=== PATIENT | female | born 1995 | race American Indian/Alaskan Native ===

== ENCOUNTER 2020-04-08 23:47 | Emergency (ER) | payer MEDICAID ==
[2020-04-09] MEDS ORDERED: ALUM-MAG HYDROXIDE-SIMETHICONE 200-200-20MG/5ML ORAL LIQD 30 ML PO ONE (00:11)
[2020-04-09] MEDS ORDERED: LIDOCAINE VISCOUS 2% 15 ML ORAL LIQD PO ONE (00:11)
[2020-04-09] MEDS ORDERED: ALPRAZolam 0.25 MG TAB PO ONE (00:11)
[2020-04-09 00:14] VITALS: BP 113/51
--- NOTE | 2020-04-09 00:28 | Emergency Department Report ---
ED General Adult HPI - General Chief complaint: Chest Pain Stated complaint: CHEST PAIN Source: patient Mode of arrival: Ambulatory Limitations: No Limitations - History of Present Illness Initial comments: Patient is a nulliparous 25-year-old -Algerian female with no past medical history except anxiety and who presents to the ED with complaint of acute onset persistent intermittent mild chest discomfort after smoking marijuana for the last 2 weeks. Patient states that each time she smokes marijuana she experiences similar symptoms with a burning sensation. Patient denies nausea, vomiting, shortness of breath, chest pain, abdominal pain, dizziness, syncope, change in vision, lightheadedness, back pain, traumatic injury or hemoptysis, sore throat, nasal and sinus congestion or fever and chills. MD Complaint: diffuse chest wall discomfort -: week(s) (2) Location: chest Radiation: non-radiation Severity scale (0 -10): 2 Quality: dull, constant Improves with: none Associated Symptoms: chest pain. denies: denies other symptoms, cough, diaphoresis, fever/chills, headaches, malaise, nausea/vomiting, rash, seizure, shortness of breath, syncope, weakness Treatments Prior to Arrival: none - Related Data Previous Rx's Medication Instructions Recorded Last Taken Type Famotidine [Pepcid] 20 mg PO Q12H #60 tablet 04/09/20 Unknown Rx Naproxen 500 mg PO Q12H PRN #20 tablet 04/09/20 Unknown Rx hydrOXYzine PAMOATE [Vistaril] 25 mg PO Q6HR PRN #30 capsule 04/09/20 Unknown Rx Allergies Allergy/AdvReac Type Severity Reaction Status Date / Time No Known Allergies Allergy Verified 04/09/20 00:11 ED Review of Systems ROS: Stated complaint: CHEST PAIN Other details as noted in HPI Constitutional: denies: chills, fever Eyes: denies: eye pain, eye discharge, vision change ENT: denies: ear pain, throat pain Respiratory: denies: cough, shortness of breath, wheezing Cardiovascular: chest pain (Chest wall discomfort). denies: palpitations Endocrine: no symptoms reported Gastrointestinal: denies: abdominal pain, nausea, diarrhea Genitourinary: denies: urgency, dysuria, discharge Musculoskeletal: denies: back pain, joint swelling, arthralgia Skin: denies: rash, lesions Neurological: denies: headache, weakness, paresthesias Psychiatric: anxiety. denies: depression, auditory hallucinations, visual hallucinations, homicidal thoughts, suicidal thoughts Hematological/Lymphatic: denies: easy bleeding, easy bruising ED Past Medical Hx - Past Medical History Previous Medical History?: Yes Hx Asthma: Yes - Surgical History Past Surgical History?: No - Social History Smoking Status: Never Smoker Substance Use Type: Marijuana - Medications Home Medications: Home Medications Medication Instructions Recorded Confirmed Last Taken Type Famotidine [Pepcid] 20 mg PO Q12H #60 tablet 04/09/20 Unknown Rx Naproxen 500 mg PO Q12H PRN #20 tablet 04/09/20 Unknown Rx hydrOXYzine PAMOATE [Vistaril] 25 mg PO Q6HR PRN #30 capsule 04/09/20 Unknown Rx ED Physical Exam - General Limitations: No Limitations General appearance: alert, in no apparent distress - Head Head exam: Present: atraumatic, normocephalic, normal inspection - Eye Eye exam: Present: normal appearance, PERRL, EOMI Pupils: Present: normal accommodation - ENT ENT exam: Present: normal exam, normal orophraynx, mucous membranes moist, TM's normal bilaterally, normal external ear exam - Neck Neck exam: Present: normal inspection, full ROM - Respiratory Respiratory exam: Present: normal lung sounds bilaterally. Absent: respiratory distress, wheezes, rales, rhonchi, stridor, chest wall tenderness, accessory muscle use, decreased breath sounds, prolonged expiratory - Cardiovascular Cardiovascular Exam: Present: regular rate, normal rhythm, normal heart sounds. Absent: systolic murmur, diastolic murmur, rubs, gallop - GI/Abdominal GI/Abdominal exam: Present: soft, normal bowel sounds. Absent: tenderness, guarding, rebound, hyperactive bowel sounds, hypoactive bowel sounds, organomegaly, bruit - Extremities Exam Extremities exam: Present: normal inspection, full ROM, normal capillary refill - Back Exam Back exam: Present: normal inspection, full ROM. Absent: tenderness, CVA tenderness (R), CVA tenderness (L), muscle spasm, paraspinal tenderness, vertebral tenderness - Neurological Exam Neurological exam: Present: alert, oriented X3, CN II-XII intact, normal gait, reflexes normal - Psychiatric Psychiatric exam: Present: normal affect, normal mood - Skin Skin exam: Present: warm, dry, intact, normal color. Absent: rash ED Course Vital Signs 04/09/20 00:13 Temperature 98.0 F Pulse Rate 82 Respiratory 16 Rate Blood Pressure 113/51 O2 Sat by Pulse 100 Oximetry ED Medical Decision Making - Radiology Data Radiology results: report reviewed, image reviewed Findings [facility] [address] [place] [address] XRay Report Signed Patient: NESHA ONEIL MR#: [id number] : 1995 Acct:[id number] Age/Sex: 25 / F ADM Date: 04/08/20 Loc: ED Attending Dr: Ordering Physician: NANCY OLIVAREZ Date of Service: 04/09/20 Procedure(s): XR chest 1V ap Accession Number(s): [id number] cc: NANCY OLIVAREZ Fluoro Time In Minutes: XR chest 1V ap INDICATION / CLINICAL INFORMATION: chest discomfort. COMPARISON: None available. FINDINGS: SUPPORT DEVICES: None. HEART /PULMONARY VASCULATURE: No significant abnormality. LUNGS / PLEURA: No significant pulmonary or pleural abnormality. No pneumothorax. ADDITIONAL FINDINGS: No significant additional findings. IMPRESSION: 1. No acute findings. Signer Name: Shawanda Pickard MD Signed: 04/09/2020 12:40 AM Workstation Name: [id number] Transcribed By: JS Dictated By: SHAWANDA PICKARD MD Electronically Authenticated By: SHAWANDA PICKARD MD Signed Date/Time: 04/09/2039 DD/ TD/TT: - Medical Decision Making This is a nulliparous 25-year-old -Algerian female with no past medical history except anxiety and who presents to the ED with complaint of acute onset persistent intermittent mild chest discomfort after smoking marijuana for the last 2 weeks. Patient states that each time she smokes marijuana she experiences similar symptoms with a burning sensation. In the ED, patient is alert and oriented x3 and is not in distress but anxious in triage. Chest x-ray shows no acute cardiopulmonary abnormalities or pneumonitis. Patient was treated in the ED with antacids and anxiety medications. On reevaluation, patient symptoms resolved with medications. Patient symptoms are likely due to anxiety and GERD complications exacerbated by marijuana abuse. Patient was therefore discharged home on medications and advised to follow-up with her primary care physician in 5 to 7 days for reevaluation. - Differential Diagnosis Pneumonia; Muscle strain; costochondritis; GERD; anxiety; drug abuse Critical care attestation.: If time is entered above; I have spent that time in minutes in the direct care of this critically ill patient, excluding procedure time. ED Disposition Clinical Impression: Anxiety as acute reaction to exceptional stress GERD (gastroesophageal reflux disease) Qualifiers: Esophagitis presence: without esophagitis Qualified Code(s): K21.9 - Gastro- esophageal reflux disease without esophagitis Disposition: TO HOME OR SELFCARE Is pt being admited?: No Does the pt Need Aspirin: No Condition: Stable Instructions: Generalized Anxiety Disorder, Adult, Gastroesophageal Reflux Disease, Adult, [id number] Additional Instructions: Take medication with food, drink plenty of fluids and follow-up with your primary care physician in 5 to 7 days for reevaluation. Return to ED immediately if symptoms get worse. Prescriptions: Naproxen 500 mg PO Q12H PRN #20 tablet PRN Reason: Pain , Severe (7-10) Famotidine [Pepcid] 20 mg PO Q12H #60 tablet hydrOXYzine PAMOATE [Vistaril] 25 mg PO Q6HR PRN #30 capsule PRN Reason: Anxiety Referrals: PRIMARY CARE, [Primary Care Provider] - 3-5 Days [facility] [Provider Group] - 3-5 Days Time of Disposition: : Print Language: INDONESIAN
--- NOTE | 2020-04-09 00:45 | XRay Report ---
XR chest 1V ap INDICATION / CLINICAL INFORMATION: chest discomfort. COMPARISON: None available. FINDINGS: SUPPORT DEVICES: None. HEART /PULMONARY VASCULATURE: No significant abnormality. LUNGS / PLEURA: No significant pulmonary or pleural abnormality. No pneumothorax. ADDITIONAL FINDINGS: No significant additional findings. IMPRESSION: 1. No acute findings. Signer Name: Holland Castillo MD Signed: 04/09/2020 12:40 AM Workstation Name: [id number]
== END 2020-04-09 01:55 | disposition home or self-care (01) ==
LOC: ED 23:47
DX: F41.9 Anxiety disorder, unspecified (principal); K21.9 Gastro-esophageal reflux disease without esophagitis; J45.909 Unspecified asthma, uncomplicated; F12.10 Cannabis abuse, uncomplicated; Z79.899 Other long term (current) drug therapy
CPT/HCPCS: 71045; 99283

== ENCOUNTER 2020-11-23 09:11 | Emergency (ER) | payer MEDICAID ==
[2020-11-23] MEDS ORDERED: ONDANSETRON 4 MG/2 ML INJ IV ONE (09:52)
[2020-11-23] MEDS ORDERED: ONDANSETRON 4 MG ODT TAB PO ONE (10:02)
--- NOTE | 2020-11-23 10:02 | Emergency Department Report ---
ED N/V/D HPI - General Chief complaint: Nausea/Vomiting/Diarrhea Stated complaint: NAUSEA AND VOMITTING Time Seen by Provider: 11/23/20 09:52 Source: patient Mode of arrival: Ambulatory Limitations: No Limitations - History of Present Illness Initial comments: The patient was evaluated in the emergency department for symptoms described in the history of present illness. He/she was evaluated in the context of the global COVID-19 pandemic, which necessitated consideration that the patient might be at risk for infection with the virus that causes COVID-19. Institutional protocols and algorithms that pertain to the evaluation of patients at risk for COVID-19 are in a state of rapid change based on information released by regulatory bodies including the CDC and federal and state organizations. These policies and algorithms were followed during the patient's care in the emergency department. Please note that these policies, procedures and recommendations changed on a rapid basis. 25-year-old -[place]ian female presents to the emergency room planing of nausea and vomiting the last 3 to 4 days. States she last vomited at 12 AM. She states she does not know when her last menstrual period is. She is 1 para 1. She denies any abdominal pain but states she has not been able to drink any fluids. She denies any diarrhea. Denies any dysuria vaginal bleeding vaginal discharge. She does report shortness of breath x1 week worse with moving or being hot. She has a past medical history of anxiety and will take hydroxyzine. She was unaware that she has a primary care provider. MD complaint: nausea, vomiting Onset/Timin -: days(s) Description of Vomiting: watery Associated Abdominal Pain: No Radiation: none Pain Scale: 0 Associated Symptoms: denies other symptoms - Related Data Previous Rx's Medication Instructions Recorded Last Taken Type Famotidine [Pepcid] 20 mg PO Q12H #60 tablet 04/09/20 Unknown Rx Naproxen 500 mg PO Q12H PRN #20 tablet 04/09/20 Unknown Rx hydrOXYzine PAMOATE [Vistaril] 25 mg PO Q6HR PRN #30 capsule 04/09/20 Unknown Rx Ondansetron [Zofran Odt] 4 mg PO Q8HR PRN #12 tab.rapdis 11/23/20 Unknown Rx Vit-Fe Fumar-FA [ 1 tab PO QDAY #90 tablet 11/23/20 Unknown Rx Vitamin] Allergies Allergy/AdvReac Type Severity Reaction Status Date / Time No Known Allergies Allergy Verified 04/09/20 00:11 ED Review of Systems ROS: Stated complaint: NAUSEA AND VOMITTING Other details as noted in HPI Comment: All other systems reviewed and negative ED Past Medical Hx - Past Medical History Hx Asthma: Yes - Surgical History Past Surgical History?: No - Social History Smoking Status: Current Every Day Smoker Substance Use Type: Marijuana - Medications Home Medications: Home Medications Medication Instructions Recorded Confirmed Last Taken Type Famotidine [Pepcid] 20 mg PO Q12H #60 tablet 04/09/20 Unknown Rx Naproxen 500 mg PO Q12H PRN #20 tablet 04/09/20 Unknown Rx hydrOXYzine PAMOATE [Vistaril] 25 mg PO Q6HR PRN #30 capsule 04/09/20 Unknown Rx Ondansetron [Zofran Odt] 4 mg PO Q8HR PRN #12 tab.rapdis 11/23/20 Unknown Rx Vit-Fe Fumar-FA [ 1 tab PO QDAY #90 tablet 11/23/20 Unknown Rx Vitamin] ED Physical Exam - General Limitations: No Limitations General appearance: alert, in no apparent distress - Head Head exam: Present: atraumatic, normocephalic - Eye Eye exam: Present: normal appearance - ENT ENT exam: Present: mucous membranes moist - Neck Neck exam: Present: normal inspection - Respiratory Respiratory exam: Present: normal lung sounds bilaterally. Absent: respiratory distress - Cardiovascular Cardiovascular Exam: Present: regular rate, normal rhythm. Absent: systolic murmur, diastolic murmur, rubs, gallop - GI/Abdominal GI/Abdominal exam: Present: soft, normal bowel sounds - Extremities Exam Extremities exam: Present: normal inspection - Back Exam Back exam: Present: normal inspection - Neurological Exam Neurological exam: Present: alert, oriented X3 - Psychiatric Psychiatric exam: Present: normal affect, normal mood - Skin Skin exam: Present: warm, dry, intact, normal color. Absent: rash ED Course Vital Signs 11/23/20 09:31 Temperature 98.9 F Pulse Rate 70 Respiratory 16 Rate Blood Pressure 111/53 O2 Sat by Pulse 100 Oximetry ED Medical Decision Making - Lab Data Result diagrams: 11/23/20 09:54 11/23/20 09:54 Laboratory Results - last 24 hr 11/23/20 11/23/20 11/23/20 09:54 09:54 09:54 WBC 6.2 RBC 4.65 Hgb 13.6 Hct 39.9 MCV 86 MCH 29 MCHC 34 RDW 13.5 Plt Count 250 Lymph % (Auto) 31.4 Lynn % (Auto) 9.0 H Eos % (Auto) 14.2 H Baso % (Auto) 0.7 Lymph # (Auto) 1.9 Lynn # (Auto) 0.6 Eos # (Auto) 0.9 H Baso # (Auto) 0.0 Seg Neutrophils % 44.7 Seg Neutrophils # 2.8 Sodium 135 L Potassium 4.3 Chloride 102.8 Carbon Dioxide 21 L Anion Gap 16 BUN 15 Creatinine 0.8 Estimated GFR > 60 BUN/Creatinine Ratio 19 Glucose 78 Calcium 9.0 Total Bilirubin < 0.20 AST 12 ALT 10 Alkaline Phosphatase 52 Total Protein 7.0 Albumin 4.0 Albumin/Globulin Ratio 1.3 HCG, Quant 04111 H - Medical Decision Making 25-year-old -E[place]ian female presents to the emergency room planing of n ausea and vomiting the last 3 to 4 days. States she last vomited at 12 AM. She states she does not know when her last menstrual period is. She is 1 para 1. She denies any abdominal pain but states she has not been able to drink any fluids. She denies any diarrhea. Denies any dysuria vaginal bleeding vaginal discharge. She does report shortness of breath x1 week worse with moving or being hot. She has a past medical history of anxiety and will take hydroxyzine. She was unaware that she has a primary care provider. CBC CMP hCG has been ordered. Labs have returned showing patient is . Patient was discharged on Zofran vitamins and referral to [facility]. Critical care attestation.: If time is entered above; I have spent that time in minutes in the direct care of this critically ill patient, excluding procedure time. ED Disposition Clinical Impression: Nausea/vomiting in , Positive blood test Disposition: HOME / SELF CARE / HOMELESS Is pt being admited?: No Does the pt Need Aspirin: No Condition: Stable Instructions: Morning Sickness Additional Instructions: Your blood work for is positive. Start vitamins take Zofran as needed for nausea and vomiting and follow-up with [facility]. Prescriptions: Vit-Fe Fumar-FA [ Vitamin] 1 tab PO QDAY #90 tablet Ondansetron [Zofran Odt] 4 mg PO Q8HR PRN #12 tab.rapdis PRN Reason: Nausea And Vomiting Referrals: [facility] [Provider Group] - 3-5 Days [facility] [Provider Group] - 3-5 Days [facility] [Provider Group] - 3-5 Days Forms: Work/School Release Form(ED)
[2020-11-23 10:07] VITALS: BP 111/53
[2020-11-23 10:07] LABS: Basophils % (Auto) 0.7 % (0.0-1.8); Eosinophils # (Auto) 0.9 K/mm3 (0.0-0.4); Eosinophils % (Auto) 14.2 % (0.0-4.3); Hematocrit 39.9 % (30.3-42.9); Hemoglobin 13.6 gm/dl (10.1-14.3); Lymphocytes # (Auto) 1.9 K/mm3 (1.2-5.4); Lymphocytes % (Auto) 31.4 % (13.4-35.0); Mean Corpuscular HGB Conc 34 % (30-34); Mean Corpuscular Volume 86 fl (79-97); Monocytes # (Auto) 0.6 K/mm3 (0.0-0.8); Platelet Count 250 K/mm3 (140-440); Red Blood Count 4.65 M/mm3 (3.65-5.03); Red Cell Distribution Width 13.5 % (13.2-15.2)
[2020-11-23 10:31] LABS: Alanine Aminotransferase 10 units/L (7-56); BUN/Creatinine Ratio 19; Blood Urea Nitrogen 15 mg/dL (7-17); Hemolysis Index 8
== END 2020-11-23 12:56 | disposition home or self-care (01) ==
LOC: ED 09:11
DX: O21.9 Vomiting of pregnancy, unspecified (principal); Z32.01 Encounter for pregnancy test, result positive; O99.511 Diseases of the respiratory system complicating pregnancy, first trimester; J45.909 Unspecified asthma, uncomplicated; F17.290 Nicotine dependence, other tobacco product, uncomplicated; Z3A.01 Less than 8 weeks gestation of pregnancy
CPT/HCPCS: 36415; 80053; 84702; 85025; 99283; Q0162